=== PATIENT | male | born 1940 | race Caucasian/White ===

== ENCOUNTER → 2018-06-16 | Outpatient (CLI) | payer MEDICARE ==
--- NOTE | 2018-06-16 14:09 | US ---
EXAMINATION TYPE: US venous doppler duplex LE LT DATE OF EXAM: 06/16/2018 1:57 PM COMPARISON: NONE CLINICAL HISTORY: I82.50 DVT,M79.662,R22.42 PAIN AND SWELLING IN LT LOWER LIMB. Left leg pain and pal pable lumps lower inner thigh SIDE PERFORMED: Left TECHNIQUE: The lower extremity deep venous system is examined utilizing real time linear array sonog howard with graded compression, doppler sonography and color-flow sonography. VESSELS IMAGED: External Iliac Vein (EIV) Common Femoral Vein Deep Femoral Vein Greater Saphenous Vein * Femoral Vein Popliteal Vein Small Saphenous Vein * Proximal Calf Veins (* superficial vessels) Left Leg: Negative for DVT, positive for SVT within left GSV (mid thigh to mid calf), and Small Saph enous vein near popliteal junction Results called to Supriya at 's office at time of exam IMPRESSION: 1. No evidence of DVT. 2. Superficial thrombophlebitis.
== END | disposition home or self-care (01) ==
LOC: RADUSWWP 13:31
PROVIDERS: ATTEND Family Medicine
DX: I80.02 Phlebitis and thrombophlebitis of superficial vessels of left lower extremity (principal)

== ENCOUNTER → 2019-06-06 | Outpatient (CLI) | payer MEDICARE ==
--- NOTE | 2019-06-06 15:58 | CT ---
EXAMINATION TYPE: CT brain wo/w con DATE OF EXAM: 06/06/2019 COMPARISON: 08/14/2011 HISTORY: 78-year-old male Right sided headaches and dizziness. TECHNIQUE: Examination was done in axial plane before and after intravenous contrast. 100 mL Isovue 300 is administered. Coronal and sagittal reconstructions performed. CT DLP: 2351 mGycm Automated exposure control for dose reduction was used. FINDINGS: There is no evidence of acute intracranial hemorrhage, acute ischemic changes, mass effect, or extra -axial fluid collection. There is no effacement of cerebral sulci or basal subarachnoid cisterns. T here is no hydrocephalus. There is no midline shift. Palmer-white matter distinction is preserved. Stable prominent CSF space along the anterior left middle cranial fossa measuring 2.3 cm AP by 3.3 cm craniocaudal by 1.6 cm wide. Stable prominence to the vertebral and basilar arteries with relative mild caliber narrowing of the d istal V4 left vertebral artery. No enhancing intracranial lesions. Dural venous sinuses are patent. IMPRESSION: 1. No acute intracranial abnormality seen. 2. 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 3. Stable prominent CSF space along the anterior left middle cranial fossa measuring up to 3.3 cm. An underlying arachnoid cyst is suspected. 4. No enhancing intracranial lesions seen.
== END | disposition home or self-care (01) ==
LOC: RADCTMAIN 13:45
PROVIDERS: ATTEND Family Medicine
DX: R51 Headache (principal)
CPT/HCPCS: 82565; 84520; 70470; 36415; Q9967

== ENCOUNTER → 2021-04-25 | Outpatient (CLI) | payer MEDICARE | END | disposition home or self-care (01) ==

== ENCOUNTER 2021-07-29 20:48 | Emergency (ER) | payer MEDICARE ==
[2021-07-29 21:49] VITALS: RESP 18; TEMP 99.6
[2021-07-29] MEDS ORDERED: KETOROLAC 15 MG/ML 1 ML VIAL IM STA (22:30)
--- NOTE | 2021-07-29 23:09 | XR ---
EXAMINATION TYPE: XR lumbar spine 2 or 3V DATE OF EXAM: 07/29/2021 COMPARISON: NONE HISTORY: Low back pain TECHNIQUE: 3 views FINDINGS: Lumbar vertebra have normal alignment. There is degenerative disc space narrowing throughou t the lumbar spine. There is mild to moderate spurring of the endplates. There is no compression frac ture. Posterior elements are intact. Sacroiliac joints are intact. IMPRESSION: Spondylotic changes typical for age. No fracture.
[2021-07-29] MEDS ORDERED: ACET/COD 300 MG/30 MG STARTER PACK 6 TAB BTL PO STA (23:42)
--- NOTE | 2021-07-29 23:43 | ED ---
General Adult HPI - General Chief complaint: Back Pain/Injury Stated complaint: Low Back Pain Time Seen by Provider: 07/29/21 22:07 Source: patient, RN notes reviewed Mode of arrival: ambulatory Limitations: no limitations - History of Present Illness Initial comments: 80-year-old male presents to the emergency room for a chief complaint of right- sided low back pain. Patient states this started about a week ago when he was lifting a wine barrel. States his soon as he twisted he felt a pain in his low back. Patient states that it has been hurting him ever since. 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 After working he went to sit in his chair. When he tried to get up he couldn't stand up straight because of this pain. States tonight the pain was bothering him so his daughter brought him into the emergency room. Patient denies fevers or chills. Denies bladder or bowel changes, denies saddle anesthesia or weakness of the legs. Patient has no other complaints at this time including shortness of breath, chest pain, abdominal pain, nausea or vomiting, headache, or visual changes. - Related Data Previous Rx's Medication Instructions Recorded Lidocaine 5% Patch [Lidoderm 5% 1 patch TOPICAL DAILY PRN 5 Days 07/29/21 Patch] #5 patch Allergies Allergy/AdvReac Type Severity Reaction Status Date / Time No Known Allergies Allergy Verified 07/29/21 22:56 Review of Systems ROS Statement: Those systems with pertinent positive or pertinent negative responses have been documented in the HPI. ROS Other: All systems not noted in ROS Statement are negative. Past Medical History Past Medical History: No Reported History Additional Past Surgical History / Comment(s): prostate surgery Past Psychological History: No Psychological Hx Reported Smoking Status: Never smoker Past Alcohol Use History: Unable to Obtain Past Drug Use History: None Reported General Exam Limitations: no limitations General appearance: alert, in no apparent distress Head exam: Present: atraumatic Eye exam: Present: normal appearance, PERRL, EOMI. Absent: scleral icterus, conjunctival injection ENT exam: Present: normal exam, mucous membranes moist Neck exam: Present: normal inspection, full ROM. Absent: tenderness Respiratory exam: Present: normal lung sounds bilaterally. Absent: respiratory distress, wheezes Course Vital Signs 07/29/21 07/29/21 21:46 23:15 Temperature 99.6 F Pulse Rate 62 50 L Respiratory 18 18 Rate Blood Pressure 151/90 137/101 O2 Sat by Pulse 96 100 Oximetry Medical Decision Making - Medical Decision Making Vitals are stable. Patient is well appearing. Patient does have right lower back pain that is reproducible to movement. Patient is unable to stand up straight because of this pain. Patient states lying on his left side helps but lying on his right side worsens his pain. Neurovascular status intact in the lower extremities. Patient denying any red flag symptoms. X-ray was obtained Shows spondylitic changes typical for age without compression fracture. Patient was given IM Toradol and had significant improvement in symptoms. We will send patient home with Tylenol 3 so we can take the suffering a bed for his pain. He also tried lidocaine patches and gentle exercise. 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 Patient will follow up with primary care orthopedics. He will return to the emergency room for any worsening symptoms Disposition Clinical Impression: Mechanical back pain Disposition: HOME SELF-CARE Condition: Good Instructions (If sedation given, give patient instructions): Acute Low Back Pain (ED) Additional Instructions: Please take a Tylenol 3 at night before bed. Throughout the day you can take Motrin and Tylenol. Use lidocaine patches as directed by applying for 12 hours and then removing for 12 hours before applying anyone. Follow up with primary care or orthopedics. If you develop any worsening symptoms such as bladder or bowel changes, saddle anesthesia, weakness of the legs, or fevers return to the emergency room. Prescriptions: Lidocaine 5% Patch [Lidoderm 5% Patch] 1 patch TOPICAL DAILY PRN 5 Days #5 patch PRN Reason: Pain Is patient prescribed a controlled substance at d/c from ED?: No Referrals: Joshua Najera MD [Primary Care Provider] - 1-2 days Steven Villela DO [Doctor of Osteopathic Medicine] - 1-2 days Time of Disposition: 23:42
[2021-07-29 23:54] VITALS: BP 148/97; PULSE 51
== END 2021-07-29 23:54 | disposition home or self-care (01) ==
LOC: EC 20:48
DX: M54.50 Low back pain, unspecified (principal)
CPT/HCPCS: 99283 ×2; 96372 ×2; 72100; J1885

== ENCOUNTER → 2021-11-18 | Outpatient (CLI) | payer MEDICARE ==
[2021-11-18 10:12] LABS: Appearance,Urine Clear (Clear); Bilirubin,Urine Negative (Negative); Blood,Urine Negative (Negative); Color,Urine Yellow; Glucose,Urine (UA) Negative (Negative); Ketones,Urine Negative (Negative); Leukocyte Esterase,Urine Negative (Negative); Nitrite,Urine Negative (Negative); PH, Urine 6.5 (5.0-8.0); Protein,Urine Trace (Negative); Specific Gravity,Urine 1.017 (1.001-1.035); Urobilinogen,Urine <2.0 mg/dL (<2.0)
[2021-11-18 14:56] LABS: Basophils # (A) 0.03 X 10*3/uL (0.00-0.10); Basophils % (A) 0.5 %; Eosinophils # (A) 0.21 X 10*3/uL (0.04-0.35); Eosinophils % (A) 3.3 %; HCT 51.8 % (39.6-50.0); HGB 16.9 g/dL (13.0-17.0); Lymphocytes # (A) 1.44 X 10*3/uL (0.90-5.00); Lymphocytes % (A) 22.3 %; MCH 31.8 pg (27.0-32.0); MCHC 32.6 g/dL (32.0-37.0); MCV 97.4 fL (80.0-97.0); Mean Platelet Volume 9.5 fL (9.5-12.2); Monocytes # (A) 0.51 X 10*3/uL (0.20-1.00); Monocytes % (A) 7.9 %; Neutrophils # (A) 4.26 X 10*3/uL (1.80-7.70); Neutrophils % (A) 65.8 %; Platelet Count 279 X 10*3/uL (140-440); RBC 5.32 X 10*6/uL (4.40-5.60); RDW 12.2 % (11.5-14.5); WBC 6.46 X 10*3/uL (4.50-10.00)
[2021-11-18 15:02] LABS: African American GFR (CKD) 79.5 (60.0-200.0); Albumin 4.4 g/dL (3.8-4.9); Albumin/Globulin Ratio 1.55 (1.60-3.17); BUN/Creat Ratio 17.65 Ratio (12.00-20.00); Calcium 9.8 mg/dL (8.7-10.3); Carbon Dioxide 25.1 mmol/L (20.0-27.5); Globulin 2.9 g/dL (1.6-3.3); Non-African American GFR(CKD) 68.6 (60.0-200.0); Potassium 4.5 mmol/L (3.5-5.5); Total Bilirubin 0.5 mg/dL (0.30-1.20); Total Protein 7.3 g/dL (6.2-8.2)
== END | disposition home or self-care (01) ==
LOC: LABPAT 08:11
PROVIDERS: ATTEND Urology
DX: Z01.812 Encounter for preprocedural laboratory examination (principal); N39.3 Stress incontinence (female) (male)
CPT/HCPCS: 80053; 81003; 85025; 87086

== ENCOUNTER → 2022-06-24 | Outpatient (CLI) | payer MEDICARE ==
[2022-06-24 14:16] LABS: Basophils # (A) 0.03 X 10*3/uL (0.00-0.10); Basophils % (A) 0.5 %; Eosinophils # (A) 0.21 X 10*3/uL (0.04-0.35); Eosinophils % (A) 3.7 %; HCT 49.8 % (39.6-50.0); HGB 16.9 g/dL (13.0-17.0); Immature Grans, Automated 0.4 %; Lymphocytes # (A) 1.04 X 10*3/uL (0.90-5.00); Lymphocytes % (A) 18.5 %; MCH 32.3 pg (27.0-32.0); MCHC 33.9 g/dL (32.0-37.0); Mean Platelet Volume 10.3 fL (9.5-12.2); Monocytes # (A) 0.48 X 10*3/uL (0.20-1.00); Monocytes % (A) 8.5 %; NRBC Per 100 WBC 0 /100 WBCS (0.0-0.0); Neutrophils # (A) 3.84 X 10*3/uL (1.80-7.70); Neutrophils % (A) 68.4 %; Platelet Count 250 X 10*3/uL (140-440); RBC 5.24 X 10*6/uL (4.40-5.60); RDW 12.3 % (11.5-14.5); WBC 5.62 X 10*3/uL (4.50-10.00)
[2022-06-24 14:22] LABS: African American GFR (CKD) 73.4 (60.0-200.0); Albumin 4.4 g/dL (3.8-4.9); Albumin/Globulin Ratio 1.68 (1.60-3.17); Anion Gap 8.5 mmol/L (10.00-18.00); BUN/Creat Ratio 16.42 Ratio (12.00-20.00); Blood Urea Nitrogen 17.9 mg/dL (9.0-27.0); Calcium 9.6 mg/dL (8.7-10.3); Carbon Dioxide 28.2 mmol/L (20.0-27.5); Globulin 2.6 g/dL (1.6-3.3); Non-African American GFR(CKD) 63.3 (60.0-200.0); Potassium 4.7 mmol/L (3.5-5.5); Total Bilirubin 0.6 mg/dL (0.30-1.20)
[2022-06-24 19:14] LABS: Appearance,Urine Clear (Clear); Bilirubin,Urine Negative (Negative); Blood,Urine Negative (Negative); Color,Urine Yellow (Yellow); Ketones,Urine Negative (Negative); Nitrite,Urine Negative (Negative); PH, Urine 7.5 (5.0-8.0); Specific Gravity,Urine 1.017 (1.001-1.030)
== END | disposition home or self-care (01) ==
LOC: LABPAT 08:59
PROVIDERS: ATTEND Urology
DX: Z01.812 Encounter for preprocedural laboratory examination (principal); N39.3 Stress incontinence (female) (male)
CPT/HCPCS: 80053; 81003; 85025; 87086

== ENCOUNTER 2022-07-01 06:19 | Day surgery (SDC) | payer MEDICARE ==
[2022-06-30 09:03] VITALS: BMI 26.6
--- NOTE | 2022-06-30 19:22 | P.GSHP ---
History of Present Illness H&P Date: 06/30/22 81 yo male with a history of prostate cancer treated with a radical prostatectomy in 2007 with worsening kelsie, 4 ppd. He has failed kegal exercises and imipramine. He was evaluated for this and was found to be a candidate for an advance sling. This risks and complications including failure, retention, chronic pain, mesh infection, injury to adjacent organs among others have been explained understood and accepted. - Constitutional Constitutional: Denies chills, Denies fever - EENT Eyes: denies blurred vision, denies pain Ears, nose, mouth and throat: Denies headache, Denies sore throat - Cardiovascular Cardiovascular: Denies chest pain, Denies shortness of breath - Respiratory Respiratory: Denies cough, Denies 7 - Gastrointestinal Gastrointestinal: Denies abdominal pain, Denies diarrhea, Denies nausea, Denies vomiting - Genitourinary (Female) Genitourinary: Denies dysuria, Denies hematuria - Genitourinary (Male) Genitourinary: Denies dysuria, Denies hematuria - Musculoskeletal Musculoskeletal: Denies myalgias - Integumentary Integumentary: Denies pruritus, Denies rash - Neurological Neurological: Denies numbness, Denies weakness - Psychiatric Psychiatric: Denies anxiety, Denies depression - Endocrine Endocrine: Denies fatigue, Denies weight change Past Medical History Past Medical History: Cancer Additional Past Medical History / Comment(s): urinary incontinence,hx skin CA,prostate CA-no radiation or chemo History of Any Multi-Drug Resistant Organisms: None Reported Additional Past Surgical History / Comment(s): prostatectomy Past Anesthesia/Blood Transfusion Reactions: No Reported Reaction Additional Past Anesthesia/Blood Transfusion Reaction / Comment(s): no hx blood transfusion Smoking Status: Never smoker - Past Family History Mother Family Medical History: No Reported History Father Additional Family Medical History / Comment(s): heart problems Medications and Allergies Home Medications Medication Instructions Recorded Confirmed Type Oxybutynin Chloride [Oxybutynin 15 mg PO 1700 11/24/21 06/30/22 History Chloride ER] Allergies Allergy/AdvReac Type Severity Reaction Status Date / Time No Known Allergies Allergy Verified 06/30/22 08:55 Surgical - Exam - General well developed, well nourished, no distress - Eyes normal ocular movement, no icteric - ENT no hearing loss, no congestion - Neck no masses, trachea midline - Respiratory normal respiratory effort, clear to auscultation - Abdomen Abdomen: soft, non tender, no guarding, no rigid, no rebound - Genitourinary absent prostate - Integumentary no rash, no abnormal pigmentation - Neurologic no disoriented, no combative - Psychiatric oriented to time, oriented to person, oriented to place, speech is normal, memory intact Assessment and Plan Assessment: Impression: kelsie sp radical prostatectomy. Prostate cancer. Plan: advance male uriary sling
[~2022-07-01 06:19] MED LIST: AMPICILLIN 1,000 MG in SODIUM CHLORIDE 0.9% 50 ML IVPB PRN; GENTAMICIN 100 MG in SODIUM CHLORIDE 0.9% 100 ML IVPB PRN; LACTATED RINGERS 1,000 ML IV SCH; LIDOCAINE 1% (10MG/ML) FOR IV START INTRADERMA PRN; ONDANSETRON 4 MG/2 ML VIAL IVP ONE
[2022-07-01] MEDS ORDERED: LACTATED RINGERS 1,000 ML IV ONE ×2 (06:45→11:25)
[2022-07-01] MEDS ORDERED: HYDROmorphone 0.5 MG/0.5 ML SYRINGE IVP PRN (07:00)
[2022-07-01] MEDS ORDERED: PROPOFOL 10 MG/ML 20 ML VIAL IV ONE (07:25)
[2022-07-01] MEDS ORDERED: ePHEDrine 50 MG/ML 1 ML VIAL ONE (07:25)
[2022-07-01] MEDS ORDERED: LIDOCAINE 2% INJ 20 MG/ML (2 ML VIAL) ONE (07:25)
[2022-07-01] MEDS ORDERED: ROCURONIUM 10 MG/ML (5 ML VIAL) IV ONE (07:25)
[2022-07-01] MEDS ORDERED: fentaNYL (PF) 50 MCG/ML 2 ML AMP ONE (07:25)
[2022-07-01] MEDS ORDERED: SUCCINYLCHOLINE CHLORIDE 200 MG/10 ML VIAL IV ONE (07:25)
--- NOTE | 2022-07-01 09:08 | P.OP ---
Date of Procedure: 07/01/22 Preoperative Diagnosis: Stress urinary incontinence post radical prostatectomy for prostate cancer Postoperative Diagnosis: Same Procedure(s) Performed: Advance male urinary sling Anesthesia: IRON Surgeon: Destin James Heeler #1: Krystian Rene Estimated Blood Loss (ml): 100 Disposition: PACU Indications for Procedure: The patient is 81. He underwent a radical prostatectomy 2007. He has had progressive stress urinary incontinence. He has been previously on imipramine and oxybutynin which does not help. He came to me and decided he wanted something surgically done. We evaluated him and decided to proceed with an AMS advance urinary sling. The risks and complications and alternatives have been discussed. Description of Procedure: The patient is brought to the operating suite. He is given a general anesthesia. He's placed in the lithotomy position with a shave and sterile prep and drape. Gaines catheter is introduced into his bladder. A midline perineal incision is made. I dissect through the subcutaneous tissue. I exposed the corpora spongiosum. I can palpate urethra. I dissect lateral to the urethra bilaterally. I'm able to dissect down to the conjoined tendon and incise it to allow mobility of the urethra. I can feel the arc of the pubis bilaterally lateral to the urethra. A make 2 incisions in the inguinal crease. Pass the sling introducers through the inguinal incisions through the obturator foramen into the space just below the pubis lateral to the urethra bilaterally. I then attached the graft ends to the introducers and pull them back through the obturator foramen bilaterally. The grafts lay nicely on the urethra. I placed 4-0 Vicryl stitches superiorly and inferiorly on the graft attachment to the urethra. I then removed the Gaines catheter introduce a flexible cystoscope. There is no injury to the urethra. Then tension the arms of the graft coming out through the obturator foramen such that this occludes the urethra nicely. I then pass a 14-Tajik catheter to make sure I can easily pass this through the urethra. This is done without difficulty. There is no active bleeding. The inguinal incisions are closed with 4-0 Vicryl. The perineum was closed with 2 layers of 3-0 chromic and then a 4-0 Vicryl subcuticular. Patient is awakened and returned recovery room in good condition. Blood loss is approximately 100 mL. Voids without difficulty he will be discharged home later this morning.
[2022-07-01 09:09] VITALS: TEMP 96.9
[2022-07-01 11:24] VITALS: RESP 16
[2022-07-01 12:38] VITALS: BP 136/70; PULSE 74
== END 2022-07-01 13:36 | disposition home or self-care (01) ==
LOC: OR 06:19
PROVIDERS: ATTEND Urology
DX: N39.3 Stress incontinence (female) (male) (principal); Z85.46 Personal history of malignant neoplasm of prostate; Z90.79 Acquired absence of other genital organ(s); Z87.448 Personal history of other diseases of urinary system; Z82.49 Family history of ischemic heart disease and other diseases of the circulatory system; Z85.828 Personal history of other malignant neoplasm of skin
CPT/HCPCS: 53440; C1771; J0330; J2405; J3010; J1580; J0290; J2704; J2001

== ENCOUNTER → 2023-05-28 | Outpatient (CLI) | payer MEDICARE ==
--- NOTE | 2023-05-28 12:21 | CT ---
EXAMINATION TYPE: CT chest wo con DATE OF EXAM: 05/28/2023 COMPARISON: Radiograph 11/27/2022 HISTORY: 82-year-old male R91.1, solitary pulmonary nodule TECHNIQUE: Contiguous axial scanning of the chest without contrast. Coronal/sagittal reconstructions performed. CT DLP: 352.50mGycm. Automatic exposure control utilized for a dose reduction. FINDINGS: Heart is normal size without pericardial effusion. Extensive LAD and to a lesser extent RCA and circu mflex coronary artery calcifications are present. Ectatic aortic root at 3.9 cm. Aneurysmal ascending aorta at 4.7 cm. Ectatic upper descending thoraci c aorta 3.5 cm. Conventional arch vessel branching anatomy. Mild aneurysmal lower descending thoracic aorta at 3.0 cm. No thoracic lymphadenopathy by CT size criteria. Nodular subpleural atelectasis posterior right upper lobe. Some additional strandy scarring or atelec tasis in the lower lungs. No consolidation or pleural effusion. No suspicious pulmonary nodule or mass. Bones: End-stage degenerative change right glenohumeral joint. Rotator cuff arthropathy left shoulder partially seen. [facility] mid and lower thoracic spine. IMPRESSION: 1. Coronary artery disease with extensive LAD and to a lesser extent RCA coronary calcifications. 2. Aneurysmal ascending aorta 4.7 cm. Ectatic descending thoracic aorta up to 3.5 cm. 3. Strandy scarring or atelectasis in the lower lungs along with a areas of nodular subpleural atelec tasis right upper lobe. No suspicious pulmonary nodule is seen. 4. DISH mid and lower thoracic spine. 5. Advanced degenerative change of the shoulders, possible rotator cuff arthropathy.
== END | disposition home or self-care (01) ==
LOC: RADCTMAIN 08:08
PROVIDERS: ATTEND Family Medicine
DX: R91.1 Solitary pulmonary nodule (principal); I25.10 Atherosclerotic heart disease of native coronary artery without angina pectoris; I71.21 Aneurysm of the ascending aorta, without rupture; M19.011 Primary osteoarthritis, right shoulder; M19.012 Primary osteoarthritis, left shoulder; M48.14 Ankylosing hyperostosis [Forestier], thoracic region
CPT/HCPCS: 71250

== ENCOUNTER 2023-07-21 15:56 | Emergency (ER) | payer MEDICARE ==
[2023-07-21 16:15] VITALS: RESP 18; TEMP 97.8
[2023-07-21] MEDS ORDERED: DIPH,PERTUS(ACELL)TETVAC-LF 0.5 ML VIAL IM ONE (16:36)
[2023-07-21] MEDS ORDERED: LIDOCAINE 1% INJ 10MG/ML (20 ML MDV) SQ STA (16:36)
--- NOTE | 2023-07-21 16:44 | ED ---
Fall HPI <Derrek Leos - Last Filed: 07/21/23 17:28> - General Source: EMS Mode of arrival: EMS - History of Present Illness MD Complaint: fall Onset/Timin -: hour(s) Fall From: standing When Fall Occurred: just prior to arrival Fall Witnessed: yes, by family Place Fall Occurred: street Loss of Consciousness: none Prolonged Down Time?: no Symptoms Prior to Fall: none Location: face Location - Extremities: Left: Hand, Right: Hand, Knee Severity: mild Quality: dull Context: tripped/slipped Associated Symptoms: headache <Chino Hamlin - Last Filed: 07/27/23 09:30> - General Chief Complaint: Fall Stated Complaint: fall Time Seen by Provider: 07/21/23 16:06 - History of Present Illness Initial Comments: This patient is an 82-year-old man coming here to have evaluation after he had fallen and the parking lot of a business. The patient states he thinks he tripped over a curb. He fell forward landing on his forearms, right knee, right brow. Patient's was with him and they note that he did not lose consciousness though he was somewhat dazed initially. On arrival, the patient states he has just a little bit of pain at the brow and at the right knee. He was able to stand and support weight on his legs. He denies neck pain, chest, abdomen, or other extremity pains. He does not recall when his last tetanus shot was given and he thinks we should update. (Chino Hamlin) - Related Data Home Medications Medication Instructions Recorded Confirmed Chlorpheniramine/Dextromethorp 1 tab PO HS 07/21/23 07/21/23 [Coricidin Hbp Cough-Cold Tab] Allergies Allergy/AdvReac Type Severity Reaction Status Date / Time No Known Allergies Allergy Verified 07/21/23 17:43 Review of Systems ROS Other: All systems not noted in ROS Statement are negative. <DafneDerrek - Last Filed: 07/21/23 17:28> ROS Other: All systems not noted in ROS Statement are negative. Constitutional: Denies: fever, chills, weakness Eyes: Denies: eye pain, vision change ENT: Denies: epistaxis Respiratory: Denies: cough, dyspnea Cardiovascular: Denies: chest pain, palpitations, syncope Gastrointestinal: Denies: abdominal pain, nausea, vomiting Genitourinary: Denies: dysuria, testicular pain Musculoskeletal: Denies: back pain Skin: Reports: other (Abrasions). Denies: rash Neurological: Denies: headache, weakness <Chino Hamlin - Last Filed: 07/27/23 09:30> ROS Statement: Those systems with pertinent positive or pertinent negative responses have been documented in the HPI. Past Medical History Past Medical History: No Reported History Additional Past Medical History / Comment(s): urinary incontinence,hx skin CA,prostate CA-no radiation or chemo History of Any Multi-Drug Resistant Organisms: None Reported Additional Past Surgical History / Comment(s): prostate surgery Past Anesthesia/Blood Transfusion Reactions: No Reported Reaction Additional Past Anesthesia/Blood Transfusion Reaction / Comment(s): no hx blood transfusion Past Psychological History: No Psychological Hx Reported Smoking Status: Never smoker Past Alcohol Use History: None Reported Past Drug Use History: None Reported - Past Family History Mother Family Medical History: No Reported History Father Additional Family Medical History / Comment(s): heart problems <Chino Hamlin - Last Filed: 07/27/23 09:30> General Exam Limitations: no limitations General appearance: alert, in no apparent distress Head exam: Present: atraumatic, normocephalic Eye exam: Present: PERRL, EOMI, other (Right brow with mild swelling and laceration). Absent: scleral icterus, conjunctival injection, nystagmus ENT exam: Present: normal oropharynx Neck exam: Present: normal inspection, full ROM. Absent: tenderness Respiratory exam: Present: normal lung sounds bilaterally. Absent: respiratory distress, wheezes, rales, rhonchi, stridor, chest wall tenderness Cardiovascular Exam: Present: regular rate, normal rhythm, normal heart sounds. Absent: systolic murmur, diastolic murmur, rubs, gallop GI/Abdominal exam: Present: soft. Absent: distended, tenderness, guarding, rebound, rigid, mass Extremities exam: Present: normal inspection, full ROM, normal capillary refill, other (Small abrasion anterior aspect right knee). Absent: tenderness, calf tenderness Back exam: Present: normal inspection. Absent: CVA tenderness (R), CVA tenderness (L), vertebral tenderness Neurological exam: Present: alert, oriented X3, CN II-XII intact. Absent: motor sensory deficit Skin exam: Present: warm, dry, intact, abrasion (2 knee and right brow). Absent: rash <Chino Hamlin - Last Filed: 07/27/23 09:30> Course Vital Signs 07/21/23 07/21/23 15:59 18:09 Temperature 97.8 F Pulse Rate 71 72 Respiratory 18 18 Rate Blood Pressure 135/90 134/80 O2 Sat by Pulse 95 96 Oximetry Procedures - Laceration Laceration #1 Site: face Size (cm): 3 Description: linear Anesthetic Used: lidocaine 1% Amount (mls): 3 Pre-repair: wound explored, irrigated extensively Size of Sutures: 6-0 Number of Sutures: 5 Technique: simple, interrupted Patient Tolerated Procedure: well, no complications <Derrek Leos - Last Filed: 07/21/23 17:28> Medical Decision Making <Chino Hamlin - Last Filed: 07/27/23 09:30> - Medical Decision Making Was pt. sent in by a medical professional or institution ([facility], CLINICAL BIOCHEMIST, urgent care, hospital, or residential...) When possible be specific @ -[No] Did you speak to anyone other than the patient for history (EMS, parent, family, police, friend...)? What history was obtained from this source @ -[The patient's did contribute to history Did you review nursing and triage notes (agree or disagree)? Why? @ -[I reviewed and agree with nursing and triage notes] Were old charts reviewed (outside hosp., previous admission, EMS record, old EKG, old radiological studies, urgent care reports/EKG's, residential records)? Report findings @ -[No old charts were reviewed] Differential Diagnosis (chest pain, altered mental status, abdominal pain women, abdominal pain men, vaginal bleeding, weakness, fever, dyspnea, syncope, headache, dizziness, GI bleed, back pain, seizure, CVA, palpatations, mental health, musculoskeletal)? @ -[Differential diagnosis for head injury includes cranial fracture, intracranial hemorrhage, concussion, scalp contusion, laceration, amongst other conditions EKG interpreted by me (3pts min.). @ -[As above] X-rays interpreted by me (1pt min.). @ -[None done] CT interpreted by me (1pt min.). @ -[None done] U/S interpreted by me (1pt. min.). @ -[None done] What testing was considered but not performed or refused? (CT, X-rays, U/S, labs)? Why? @ -[CT of the brain is considered but patient at this point is clinically cleared, discussed appropriate return parameters What meds were considered but not given or refused? Why? @ -[None] Did you discuss the management of the patient with other professionals (professionals i.e. , PA, CLINICAL BIOCHEMIST, lab, RT, psych nurse, social welfare administrator, clinical lab clerk, teacher, fire management officer, immigration case worker)? Give summary @ -[No] Was smoking cessation discussed for >3mins.? @ -[No] Was critical care preformed (if so, how long)? @ -[No] Were there social determinants of health that impacted care today? How? (Homelessness, low income, unemployed, alcoholism, drug addiction, transportation, low edu. Level, literacy, decrease access to med. care, snf, r ehab)? @ -[No] Was there de-escalation of care discussed even if they declined (Discuss DNR or withdrawal of care, Hospice)? DNR status @ -[No] What co-morbidities impacted this encounter? (DM, HTN, Smoking, COPD, CAD, Cancer, CVA, ARF, Chemo, Hep., AIDS, mental health diagnosis, sleep apnea, morbid obesity)? @ -[None] Was patient admitted / discharged? Hospital course, mention meds given and route, prescriptions, significant lab abnormalities, going to OR and other pertinent info. @ -[Patient is an 82-year-old man seen here after ground level fall. This is not associated with a blood thinner use. The patient able to be clinically cleared. Discussed the return parameters, warning signs for worsening headache injury. Discussed suture care. Undiagnosed new problem with uncertain prognosis? @ -[No] Drug Therapy requiring intensive monitoring for toxicity (Heparin, Nitro, Insulin, Cardizem)? @ -[No] Were any procedures done? @ -[Suture repair, see the note Diagnosis/symptom? @ -[Acute minor head trauma Acute fall Facial laceration Acute, or Chronic, or Acute on Chronic? @ -[Acute Uncomplicated (without systemic symptoms) or Complicated (systemic symptoms)? @ -[Uncomplicated Side effects of treatment? @ -[No] Exacerbation, Progression, or Severe Exacerbation? @ -[No] Poses a threat to life or bodily function? How? (Chest pain, USA, IA, pneumonia, PE, COPD, DKA, ARF, appy, cholecystitis, CVA, Diverticulitis, Homicidal, Suicidal, threat to staff... and all critical care pts) @ -[No] (Chino Hamlin) Disposition <Derrek Leos - Last Filed: 07/21/23 17:28> Is patient prescribed a controlled substance at d/c from ED?: No <Chino Hamlin - Last Filed: 07/27/23 09:30> Clinical Impression: Fall, Laceration of face, Blunt head injury Disposition: HOME SELF-CARE Condition: Good Instructions (If sedation given, give patient instructions): Facial Fracture (ED), Fall Prevention for Older Adults (ED), Head Injury (ED) Referrals: Joshua Najera MD [Primary Care Provider] - 1-2 days
[2023-07-21 18:15] VITALS: BP 134/80; PULSE 72
== END 2023-07-21 18:10 | disposition home or self-care (01) ==
LOC: EC 15:56
DX: S01.111A Laceration without foreign body of right eyelid and periocular area, initial encounter (principal); Z23 Encounter for immunization; W01.10XA Fall on same level from slipping, tripping and stumbling with subsequent striking against unspecified object, initial encounter
CPT/HCPCS: 99284; 90471; 90715; 12013; J2001; 12011

== ENCOUNTER 2025-01-24 09:37 | Day surgery (SDC) | payer MEDICARE ==
[2025-01-24 10:31] VITALS: TEMP 97.7
[2025-01-24] MEDS: LACTATED RINGERS 1,000 ML IV SCH (10:36)
[2025-01-24] MEDS: LACTATED RINGERS 1,000 ML IV ONE (10:37)
[2025-01-24] MEDS ORDERED: PROPOFOL 10 MG/ML 20 ML VIAL IV ONE (11:02)
[2025-01-24] MEDS ORDERED: LIDOCAINE 1% INJ 10MG/ML (20 ML MDV) ONE (11:02)
--- NOTE | 2025-01-24 11:24 | P.GSHP ---
History of Present Illness H&P Date: 01/24/25 PREOPERATIVE DIAGNOSIS: Dysphagia. POSTOPERATIVE DIAGNOSIS: Upper esophageal sphincter stenosis Diaphragmatic hiatal hernia OPERATION: Esophagogastroduodenoscopy rigid Guatemalan dilator 60 Fr, upper esophageal sphincter. SURGEON: Luisana Montelongo MD ANESTHESIA: MAC. INDICATIONS: The patient is a 84-year-old female who presents with dysphagia. He reports troubles with swallowing pills along upper throat. Upper endoscopy was offered for further diagnostic evaluation and treatment. DESCRIPTION: The patient was brought into the endoscopy suite and laid in the left lateral decubitus position. An Olympus gastroscope was carefully passed along the posterior oropharynx. Upon entry into the proximal esophagus, a mild stricture was identified consistent with hypertensive upper esophageal sphincter. No erosion were found along the distal esophagus or ulcerations. The stomach was entered. The scope was passed to the second portion and third portion of the duodenum was unremarkable. Retroflexion of the scope confirmed Hill grade 3 lower esophageal valve without recurrent diaphragmatic hiatal hernia. A guidewire was placed through the scope into the stomach. The scope was removed. A 60-Salvadorean rigid dilator was placed to 45 cm from the incisors. The dilator was left in place between 2-3 minutes. The dilator and guidewire were removed. The scope was reentered along the proximal esophagus whereby the stricture had resolved of the upper esophagus. No full-thickness injury was found along the mucosa. The stomach was desufflated. The patient tolerated the procedure well. FINDINGS: Squamocolumnar junction 36 cm from the incisors. Diaphragmatic hiatus at 40 cm. Diaphragmatic hiatal hernia 4 cm Hill grade 3 lower esophageal valve. LA grade B erosive esophagitis. Hypertensive upper esophageal sphincter dilated to 60 Salvadorean RECOMMENDATIONS: Upper endoscopy as needed. Past Medical History Past Medical History: No Reported History Additional Past Medical History / Comment(s): urinary incontinence,hx skin CA,prostate CA-no radiation or chemo History of Any Multi-Drug Resistant Organisms: None Reported Additional Past Surgical History / Comment(s): prostate surgery Past Anesthesia/Blood Transfusion Reactions: No Reported Reaction Additional Past Anesthesia/Blood Transfusion Reaction / Comment(s): no hx blood transfusion Past Psychological History: No Psychological Hx Reported Smoking Status: Never smoker Past Alcohol Use History: None Reported Past Drug Use History: None Reported - Past Family History Mother Family Medical History: No Reported History Father Additional Family Medical History / Comment(s): heart problems Medications and Allergies Home Medications Medication Instructions Recorded Confirmed Type Tolterodine [Detrol] 01/24/25 History Allergies Allergy/AdvReac Type Severity Reaction Status Date / Time No Known Allergies Allergy Verified 01/24/25 10:10 Surgical - Exam Vital Signs Temp Pulse Resp BP Pulse Ox 97.7 F 69 18 169/108 95 01/24/25 10:29 01/24/25 10:29 01/24/25 10:29 01/24/25 10:29 01/24/25 10:29
--- NOTE | 2025-01-24 11:25 | P.GSHP ---
History of Present Illness H&P Date: 01/24/25 CHIEF COMPLAINT: Esophageal stricture HISTORY OF PRESENT ILLNESS: The patient is a 84-year-old male who presents reports dysphagia. Upper endoscopy was offered for further evaluation and management. PAST MEDICAL HISTORY: Please see list. PAST SURGICAL HISTORY: Please see list. MEDICATIONS: Please see list. ALLERGIES: Please see list. SOCIAL HISTORY: No illicit drug use FAMILY HISTORY: No reports of Crohn disease or ulcerative colitis. REVIEW OF ORGAN SYSTEMS: CONSTITUTIONAL: No reports of fevers or chills. GI: Denies any blood in stools or constipation. PHYSICAL EXAM: VITAL SIGNS: Stable GENERAL: Well-developed and pleasant in no acute distress. HEENT: No scleral icterus. Extraocular movements grossly intact. Moist buccal mucosa. NECK: Supple without lymphadenopathy. CHEST: Unlabored respirations. Equal bilateral excursions. CARDIOVASCULAR: Regular rate and rhythm. Distal 2+ pulses. ABDOMEN: Soft, nondistended. MUSCULOSKELETAL: No clubbing, cyanosis, or edema. ASSESSMENT: 1. Esophageal stricture PLAN: 1. Recommend proceeding with an upper endoscopy with rigid dilators. Past Medical History Past Medical History: No Reported History Additional Past Medical History / Comment(s): urinary incontinence,hx skin CA,prostate CA-no radiation or chemo History of Any Multi-Drug Resistant Organisms: None Reported Additional Past Surgical History / Comment(s): prostate surgery Past Anesthesia/Blood Transfusion Reactions: No Reported Reaction Additional Past Anesthesia/Blood Transfusion Reaction / Comment(s): no hx blood transfusion Past Psychological History: No Psychological Hx Reported Smoking Status: Never smoker Past Alcohol Use History: None Reported Past Drug Use History: None Reported - Past Family History Mother Family Medical History: No Reported History Father Additional Family Medical History / Comment(s): heart problems Medications and Allergies Home Medications Medication Instructions Recorded Confirmed Type Tolterodine [Detrol] 01/24/25 History Allergies Allergy/AdvReac Type Severity Reaction Status Date / Time No Known Allergies Allergy Verified 01/24/25 10:10 Surgical - Exam Vital Signs Temp Pulse Resp BP Pulse Ox 97.7 F 69 18 169/108 95 01/24/25 10:29 01/24/25 10:29 01/24/25 10:29 01/24/25 10:29 01/24/25 10:29
[2025-01-24 11:39] VITALS: RESP 16
[2025-01-24 12:05] VITALS: BP 124/75; PULSE 55
== END 2025-01-24 12:14 | disposition home or self-care (01) ==
LOC: ORWHC2ENDO 09:37
PROVIDERS: ATTEND Surgery Plastic and Reconstructive Surgery
DX: K22.2 Esophageal obstruction (principal); K44.9 Diaphragmatic hernia without obstruction or gangrene
CPT/HCPCS: 43249; J2003; J2704

== ENCOUNTER 2025-03-03 05:27 | Emergency (ER) | payer MEDICARE ==
[2025-03-03 05:39] VITALS: RESP 16
--- NOTE | 2025-03-03 06:15 | ED ---
Lower Extremity Injury HPI - General Chief Complaint: Extremity Injury, Lower Stated Complaint: Fall Time Seen by Provider: 03/03/25 05:40 Source: patient ( ), RN notes reviewed Mode of arrival: ambulatory Limitations: no limitations - History of Present Illness Initial Comments: This is an 84-year-old male with no reported medical conditions resenting to the emergency room with his for complaints of left hip pain after a fall that occurred yesterday. Patient states that he was outside taking a 2 wheel trailer from his pickup truck and the trailer moved to more quickly than anticipated caused the patient to fall. Patient denies hitting his head or loss of consciousness. States that he was able to get up after the fall however has been having severe pain of the left hip with difficulty in ambulating. Denies loss of bladder bowel continence, saddle seizures, back pain. denies previous surgeries of the left hip. - Related Data Home Medications Medication Instructions Recorded Confirmed Tolterodine [Detrol] 01/24/25 Previous Rx's Medication Instructions Recorded Omeprazole [PriLOSEC] 40 mg PO DAILY #14 cap 01/24/25 Acetaminophen [Acetaminophen 8 hr] 650 mg PO Q8H #15 tab 03/03/25 Ibuprofen [Motrin] 800 mg PO Q8HR PRN #30 tab 03/03/25 Allergies Allergy/AdvReac Type Severity Reaction Status Date / Time No Known Allergies Allergy Verified 03/03/25 05:34 Review of Systems ROS Statement: Those systems with pertinent positive or pertinent negative responses have been documented in the HPI. ROS Other: All systems not noted in ROS Statement are negative. Past Medical History Past Medical History: No Reported History Additional Past Medical History / Comment(s): urinary incontinence,hx skin CA,prostate CA-no radiation or chemo History of Any Multi-Drug Resistant Organisms: None Reported Additional Past Surgical History / Comment(s): prostate surgery Past Anesthesia/Blood Transfusion Reactions: No Reported Reaction Additional Past Anesthesia/Blood Transfusion Reaction / Comment(s): no hx blood transfusion Past Psychological History: No Psychological Hx Reported Smoking Status: Never smoker Past Alcohol Use History: None Reported Past Drug Use History: None Reported - Past Family History Mother Family Medical History: No Reported History Father Additional Family Medical History / Comment(s): heart problems General Exam Limitations: no limitations General appearance: alert, in no apparent distress ENT exam: Present: normal exam, mucous membranes moist Neck exam: Present: normal inspection. Absent: tenderness, meningismus, lymphadenopathy Respiratory exam: Present: normal lung sounds bilaterally. Absent: respiratory distress, wheezes, rales, rhonchi, stridor Cardiovascular Exam: Present: regular rate, normal rhythm, normal heart sounds. Absent: systolic murmur, diastolic murmur, rubs, gallop, clicks GI/Abdominal exam: Present: soft, normal bowel sounds. Absent: distended, tenderness, guarding, rebound, rigid Left Hip exam: Present: tenderness. Absent: ecchymosis, deformity, external rotation, internal rotation, shortening Knee exam: Present: normal inspection, full ROM. Absent: tenderness Neurovascular tendon exam: Present: no vascular compromise. Absent: pulse deficit Back exam: Present: normal inspection. Absent: CVA tenderness (R), CVA tenderness (L) Neurological exam: Present: alert, oriented X3, CN II-XII intact Course Vital Signs 03/03/25 05:34 Temperature 97.9 F Pulse Rate 68 Respiratory 16 Rate Blood Pressure 164/87 O2 Sat by Pulse 96 Oximetry Medical Decision Making - Medical Decision Making Was pt. sent in by a medical professional or institution (, PA, ASSESSMENT CONSULTANT, urgent care, hospital, or long-term...) When possible be specific @ -No Did you speak to anyone other than the patient for history (EMS, parent, family, police, friend...)? What history was obtained from this source @ -No Did you review nursing and triage notes (agree or disagree)? Why? @ -I reviewed and agree with nursing and triage notes Were old charts reviewed (outside hosp., previous admission, EMS record, old EKG, old radiological studies, urgent care reports/EKG's, long-term records)? Report findings @ -No old charts were reviewed Differential Diagnosis (chest pain, altered mental status, abdominal pain women, abdominal pain men, vaginal bleeding, weakness, fever, dyspnea, syncope, headache, dizziness, GI bleed, back pain, seizure, CVA, palpatations, mental health, musculoskeletal)? @Differential Musculoskeletal Muscular strain, contusion, ligament sprain, fracture, arthritis, septic arthritis, bursitis, cellulitis, muscle spasm, nerve compression, DVT, arterial occlusion, herpes zoster, electrolyte abnormality, tumor.... This is not meant to be in all inclusive list EKG interpreted by me (3pts min.). @ -None X-rays interpreted by me (1pt min.). @ -X-ray of the left hip no acute osseous abnormality identified CT interpreted by me (1pt min.). @ -CT of the left hip without contrast reveals findings suggestive of a nondisplaced fracture of the greater trochanter U/S interpreted by me (1pt. min.). @ -None done What testing was considered but not performed or refused? (CT, X-rays, U/S, labs)? Why? @ -None What meds were considered but not given or refused? Why? @ -None Did you discuss the management of the patient with other professionals (professionals i.e. , PA, ASSESSMENT CONSULTANT, lab, RT, psych nurse, social services specialist, netbackup administrator, teacher, agricultural extension officer, case planner)? Give summary @ -Spoke with on-call account specialist, Dr. Pinedo, who personally evaluated the CT scan of the head and appreciated a minor greater trochanter fracture and deemed that this is a nonoperative case. Recommend the patient weight-bear as tolerated with walker and or a cane and follow-up in office with continued pain management. Was smoking cessation discussed for >3mins.? @ -No Was critical care preformed (if so, how long)? @ -No Were there social determinants of health that impacted care today? How? (Homelessness, low income, unemployed, alcoholism, drug addiction, transportation, low edu. Level, literacy, decrease access to med. care, fpc, rehab)? @ -No Was there de-escalation of care discussed even if they declined (Discuss DNR or withdrawal of care, Hospice)? DNR status @ -No What co-morbidities impacted this encounter? (DM, HTN, Smoking, COPD, CAD, Cancer, CVA, ARF, Chemo, Hep., AIDS, mental health diagnosis, sleep apnea, morbid obesity)? @ -None Was patient admitted / discharged? Hospital course, mention meds given and route, prescriptions, significant lab abnormalities, going to OR and other pertinent info. @ -Discharge. 84-year-old male presents to the emergency room with complaints of left hip pain. Patient has full range of motion of the left knee however pain with movement of the left hip. Neurovascularly intact of the left lower extremity. Initial x-ray reveals no abnormality however with patient's pain with ambulation CT is ordered which reveals a minor nondisplaced fracture of the greater trochanter. equipment validation specialist recommends weightbearing as tolerated to follow-up in office. Patient is provided with starter pack of Tylenol 3 in addition to prescription for Tylenol Motrin. Return parameters discussed. Case discussed with Dr. Leung Undiagnosed new problem with uncertain prognosis? @ -No Drug Therapy requiring intensive monitoring for toxicity (Heparin, Nitro, Insulin, Cardizem)? @ -No Were any procedures done? @ -No Diagnosis/symptom? @ -greater trochanter fracture of left hip Acute, or Chronic, or Acute on Chronic? @ -acute Uncomplicated (without systemic symptoms) or Complicated (systemic symptoms)? @ -uncomplicated Side effects of treatment? @ -No Exacerbation, Progression, or Severe Exacerbation? @ -No Poses a threat to life or bodily function? How? (Chest pain, [place], [place], pneumonia, PE, COPD, DKA, ARF, appy, cholecystitis, CVA, Diverticulitis, Homicidal, Suicidal, threat to staff... and all critical care pts) @ -No Disposition Clinical Impression: Fracture of greater trochanter of left femur Disposition: HOME SELF-CARE Condition: Stable Instructions (If sedation given, give patient instructions): Hip Fracture (ED) Additional Instructions: Please return to the Emergency Department if symptoms worsen or any other concerns. Continue to weight-bear as tolerated with walker and or cane. Follow-up with provided account specialist early next week for further evaluation. You may take prescribed Motrin, up to 800 mg every 8 hours as needed in addition to 1000mg of tylenol every 6 hours as needed. do not take starter pack of Tylenol #3 with prescribed Tylenol. Prescriptions: Acetaminophen [Acetaminophen 8 hr] 650 mg PO Q8H #15 tab Ibuprofen [Motrin] 800 mg PO Q8HR PRN #30 tab PRN Reason: Pain Is patient prescribed a controlled substance at d/c from ED?: No Referrals: Joshua Najera MD [Primary Care Provider] - 1-2 days González Cifuentes DO [Doctor of Osteopathic Medicine] - 1-2 days Time of Disposition: 08:01
--- NOTE | 2025-03-03 06:53 | XR ---
EXAMINATION TYPE: XR Hip LT and AP Pelvis DATE OF EXAM: 03/03/2025 COMPARISON: NONE CLINICAL INDICATION: Male, 84 years old with history of fall, pain, difficulty ambulating; TECHNIQUE: A single AP view of the pelvis is obtained. Two views of the left hip are obtained. FINDINGS: There is no acute fracture/dislocation evident in the pelvis. The hip and sacroiliac join ts appear symmetric and unremarkable. The overlying soft tissue appears unremarkable. There are mult iple surgical clips in the low pelvis presumably from a prostatectomy Two views of left hip show no acute fracture or dislocation. No focal lytic or sclerotic lesion seen in the proximal left femur. The overlying soft tissue is unremarkable. IMPRESSION: There is no acute fracture or dislocation in the pelvis or left hip. [facility], , 03/03/2025 6:51 AM
--- NOTE | 2025-03-03 07:32 | CT ---
EXAMINATION TYPE: CT hip LT wo con DATE OF EXAM: 03/03/2025 COMPARISON: None CLINICAL INDICATION: Male, 84 years old with history of fall, pain, difficulty with ambulation; PHH, Fall, Lt hip pain, difficulty ambulating. CT DLP: 371.3 mGycm Automated exposure control for dose reduction was used. FINDINGS: There is a suggestion of a nondisplaced fracture of the greater trochanter. Left hip joint space is w ell-preserved. There are no focal intraosseous abnormalities or periarticular soft tissue abnormaliti es. IMPRESSION: FINDINGS SUGGEST THE POSSIBILITY OF A NONDISPLACED FRACTURE OF THE GREATER TROCHANTER. [facility], , 03/03/2025 7:30 AM
[2025-03-03] MEDS: ACET/COD 300 MG/30 MG STARTER PACK 6 TAB BTL PO STA (08:27)
[2025-03-03 08:42] VITALS: BP 150/86; PULSE 67; TEMP 98
== END 2025-03-03 08:42 | disposition home or self-care (01) ==
LOC: EC 05:27
DX: S72.115A Nondisplaced fracture of greater trochanter of left femur, initial encounter for closed fracture (principal); W19.XXXA Unspecified fall, initial encounter
CPT/HCPCS: 73502; 99284